=== PATIENT | male | born 1955 | race Caucasian/White ===

== ENCOUNTER → 2019-09-18 12:09 | Outpatient (CLI) | payer MEDICARE, SELFPAY ==
[2019-09-20 20:07] LABS: Red Blood Cell Count Test/G6PD 4.15 x10E6/uL (4.14-5.80)
[2019-09-23 20:11] LABS: G6PD Quant Test 293 (146-376)
== END ==
PROVIDERS: Family Provider Family Medicine; PCP Family Medicine; Referring Provider Internal Medicine Rheumatology; Visit Provider Internal Medicine Rheumatology
DX: M06.09 Rheumatoid arthritis without rheumatoid factor, multiple sites (principal); M18.0 Bilateral primary osteoarthritis of first carpometacarpal joints; F32.89 Other specified depressive episodes; Q66.70 Congenital pes cavus, unspecified foot; F41.9 Anxiety disorder, unspecified; I10 Essential (primary) hypertension; E11.9 Type 2 diabetes mellitus without complications; Z79.899 Other long term (current) drug therapy
CPT/HCPCS: 36415; 82955

== ENCOUNTER → 2019-11-22 11:50 | Outpatient (CLI) | payer MEDICARE, SELFPAY ==
[2019-11-24 16:07] LABS: Red Blood Cell Count Test/G6PD 4.49 x10E6/uL (4.14-5.80)
[2019-11-25 08:38] LABS: G6PD Quant Test 290 (146-376)
== END ==
PROVIDERS: PCP Family Medicine; Referring Provider Internal Medicine Rheumatology; Visit Provider Internal Medicine Rheumatology
DX: M06.09 Rheumatoid arthritis without rheumatoid factor, multiple sites (principal); I10 Essential (primary) hypertension; E11.9 Type 2 diabetes mellitus without complications; M18.0 Bilateral primary osteoarthritis of first carpometacarpal joints; F41.9 Anxiety disorder, unspecified; Z79.899 Other long term (current) drug therapy
CPT/HCPCS: 36415; 82955